=== PATIENT | male | born 1990 | race Caucasian/White ===

== ENCOUNTER 2023-05-13 21:38 | Emergency (ER) | payer BC ==
[~2023-05-13] VITALS: Ht 182.9 cm; Wt 83.9 kg
[2023-05-13] MEDS ORDERED: KETOROLAC TROMETHAMINE 60 MG INJ IM ONE ×2 (22:25→22:30)
[2023-05-13] MEDS ORDERED: AMOXICILLIN-CLAVUL 875-125MG TABLET PO ONE (22:30)
[2023-05-13] MEDS ORDERED: IBUP-1957 PO (23:13)
[2023-05-13] MEDS ORDERED: AMOX-430 PO (23:14)
[2023-05-13 23:21] VITALS: BP 137/88; TEMP 98; O2SAT 97
== END 2023-05-13 23:21 | disposition home or self-care (01) ==
LOC: ER 21:41
DX: S02.5XXA Fracture of tooth (traumatic), initial encounter for closed fracture (principal); K04.01 Reversible pulpitis; F17.210 Nicotine dependence, cigarettes, uncomplicated; Z79.1 Long term (current) use of non-steroidal anti-inflammatories (NSAID); Z79.2 Long term (current) use of antibiotics; X58.XXXA Exposure to other specified factors, initial encounter; Y93.89 Activity, other specified; Y92.89 Other specified places as the place of occurrence of the external cause; Y99.8 Other external cause status
CPT/HCPCS: 99283; 96372; J1885; A4606; A4663